=== PATIENT | male | born 1975 | race African-American/Black ===

== ENCOUNTER 2019-01-27 15:48 | Emergency (ER) | payer SELFPAY ==
[2019-01-27 16:18] VITALS: BP 161/88
--- NOTE | 2019-01-27 16:44 | UC ---
General HPI - HPI Summary HPI Summary: accidentally scratched on his nose by his daughter 1 week ago. area now much larger, red and crusting. was just a small scratch at onset. no hx MRSA or fever. no hx DM. - History of Current Complaint Chief Complaint: UCSkin Stated Complaint: SKIN COMPLAINT Time Seen by Provider: 01/27/19 16:36 Hx Obtained From: Patient Onset/Duration: Gradual Onset Timing: Constant Pain Intensity: 0 Associated Signs & Symptoms: Negative: Fever, Headache - Allergy/Home Medications Allergies/Adverse Reactions: Allergies Allergy/AdvReac Type Severity Reaction Status Date / Time No Known Allergies Allergy Verified 01/27/19 16:18 PMH/Surg Hx/FS Hx/Imm Hx Previously Healthy: Yes - Surgical History Surgical History: None - Family History Known Family History: Positive: Non-Contributory - Social History Lives: With Family Alcohol Use: Occasionally Alcohol Amount: on weekends Substance Use Type: Marijuana Substance Use Comment - Amount & Last Used: once daily Smoking Status (MU): Light Every Day Tobacco Smoker Amount Used/How Often: 6 cig daily Review of Systems All Other Systems Reviewed And Are Negative: No Constitutional: Negative: Fever, Fatigue Skin: Positive: Rash - nose Neurological: Negative: Headache Physical Exam Triage Information Reviewed: Yes Appearance: Well-Appearing Vital Signs: Initial Vital Signs Temp 98.2 F 01/27/19 16:15 Pulse 70 01/27/19 16:15 Resp 16 01/27/19 16:15 BP 161/88 01/27/19 16:15 Pulse Ox 99 01/27/19 16:15 Vital Signs Reviewed: Yes Eyes: Positive: Conjunctiva Clear ENT: Positive: Pharynx normal. Negative: Nasal congestion, TMs normal Neck: Positive: Supple, Nontender, No Lymphadenopathy Neurological: Positive: Alert Psychological: Positive: Age Appropriate Behavior Skin Exam: Normal, Other - bridge of nose has a 1cm area of crusting and about another 1cm area of erythema to R side. Course/Dx - Course Course Of Treatment: NO HX HTN, BP TO BE RECHECKED ON F/U. - Diagnoses Provider Diagnosis: Impetigo Discharge - Sign-Out/Discharge Documenting (check all that apply): Patient Departure All imaging exams completed and their final reports reviewed: No Studies - Discharge Plan Condition: Stable Disposition: HOME Prescriptions: Cephalexin CAP* [Keflex CAP*] 500 mg PO TID 10 Days #30 cap Mupirocin 2% OINT* [Bactroban 2 % Oint*] 1 applic TOPICAL BID 10 Days #1 tube Patient Education Materials: Impetigo (ED) Forms: *Work Release Referrals: Geoffrey Pratt MD [Medical Doctor] - 7 Days - Billing Disposition and Condition Condition: STABLE Disposition: Home - Attestation Statements Provider Attestation: Per institutional requirements, I have reviewed the chart, however, I was not consulted specifically or made aware of this patient by the midlevel provider. I did not personally evaluate, interact with , or disposition this patient.
== END 2019-01-27 17:05 | disposition home or self-care (01) ==
LOC: UCCORT 15:48
DX: L01.00 Impetigo, unspecified (principal); F17.200 Nicotine dependence, unspecified, uncomplicated
CPT/HCPCS: 99202; G0463

== ENCOUNTER 2019-06-20 19:42 | Emergency (ER) | payer SELFPAY ==
--- NOTE | 2019-06-20 20:21 | UC ---
Throat Pain/Nasal Renato HPI - HPI Summary HPI Summary: 44-year-old male who has vomited approximate 6 times in the past 24 hours and diarrhea 3 times. Today he has a sore throat. - History of Current Complaint Stated Complaint: FEVER/SORE THROAT/VOMITING/BOLANOS Time Seen by Provider: 06/20/19 20:14 Hx Obtained From: Patient Onset/Duration: Gradual Onset Severity: Mild Cough: None Associated Signs & Symptoms: Positive: Nasal Discharge - Allergies/Home Medications Allergies/Adverse Reactions: Allergies Allergy/AdvReac Type Severity Reaction Status Date / Time No Known Allergies Allergy Verified 06/20/19 20:22 Home Medications: Home Medications Ibuprofen TAB* [Motrin TAB* 800 MG] 800 mg PO ONCE PRN 06/20/19 [History Confirmed 06/20/19] PMH/Surg Hx/FS Hx/Imm Hx Previously Healthy: Yes - Surgical History Surgical History: None - Family History Known Family History: Positive: Non-Contributory - Social History Alcohol Use: Occasionally Alcohol Amount: on weekends Substance Use Type: Marijuana Substance Use Comment - Amount & Last Used: once daily Smoking Status (MU): Light Every Day Tobacco Smoker Amount Used/How Often: 6 cig daily Review of Systems All Other Systems Reviewed And Are Negative: Yes ENT: Positive: Sore Throat, Nasal Discharge Gastrointestinal: Positive: Vomiting - Vomited 6 times in the past 24 hours. Most recent time that he vomited was 3 hours ago. Diarrhea 3 times in the past 24 hours. Is Patient Immunocompromised?: No Physical Exam Triage Information Reviewed: Yes Appearance: Well-Appearing, No Pain Distress, Well-Nourished Vital Signs Reviewed: Yes Eyes: Positive: Conjunctiva Clear ENT: Positive: Hearing grossly normal, Pharynx normal, Nasal drainage - Clear nasal coryza, TMs normal, Uvula midline Neck: Positive: Supple, Nontender, No Lymphadenopathy Respiratory: Positive: Lungs clear, Normal breath sounds, No respiratory distress, No accessory muscle use Cardiovascular: Positive: RRR, No Murmur, Pulses Normal, Brisk Capillary Refill Abdomen Description: Positive: Nontender, No Organomegaly, Soft. Negative: CVA Tenderness (R), CVA Tenderness (L), Distended, Guarding, Hepatomegaly, Splenomegaly Bowel Sounds: Positive: Present Musculoskeletal Exam: Normal Neurological Exam: Normal Psychological Exam: Normal Skin Exam: Normal Throat Pain/Nasal Course/Dx - Course Course Of Treatment: Rapid strep test: Negative - Differential Dx/Diagnosis Provider Diagnosis: Pharyngitis Discharge ED - Sign-Out/Discharge Documenting (check all that apply): Patient Departure All imaging exams completed and their final reports reviewed: No Studies - Discharge Plan Condition: Good Disposition: HOME Patient Education Materials: Acute Nausea and Vomiting (ED) Forms: *Work Release Referrals: [facility] [Outside] No Primary Care Phys,NOPCP [Primary Care Provider] - Additional Instructions: Clear liquids today, soup and crackers later today when you have no further vomiting then gradually increase to your regular diet. Avoid spicy or fatty foods today. Definite follow up with your primary care provider if no improvement in 1 day. Go to the ER if you feel like you are going to pass out or if you feel lightheaded or dizzy. - Billing Disposition and Condition Condition: GOOD Disposition: Home
[2019-06-20 20:24] VITALS: BP 137/83
== END 2019-06-20 20:49 | disposition home or self-care (01) ==
LOC: UCCORT 19:42
DX: J02.9 Acute pharyngitis, unspecified (principal); F17.210 Nicotine dependence, cigarettes, uncomplicated
CPT/HCPCS: 87651; 99211; G0463